=== PATIENT | male | born 1995 | race Caucasian/White ===

== ENCOUNTER 2020-08-23 08:45 | Day surgery (SDC) | payer OTHER ==
[~2020-08-23] VITALS: Ht 177.8 cm; Wt 84.8 kg
[~2020-08-23 08:45] MED LIST: LIDOCAINE 2% 100MG/5ML SDV (FOR ANES.) As Ordered ONE; NS 1,000 ML IV ONE; propofoL 200 MG/20 ML VIAL As Ordered ONE
[2020-08-23] MEDS ORDERED: propofoL 200 MG/20 ML VIAL As Ordered ONE (09:54)
--- NOTE | 2020-08-23 10:16 | ROOR ---
Patient Name: Sarah Wright Procedure Date: 08/23/2020 9:25 AM Date of : 1995 Age: 25 Room: [facility] Gender: Male Note Status: Finalized Procedure: Colonoscopy Indications: Lower abdominal pain, Hematochezia Providers: Tapan Dye MD Referring MD: MIMI LE MD Requesting Provider: Medicines: Monitored Anesthesia Care Complications: No immediate complications. Procedure: Pre-Anesthesia Assessment: - Prior to the procedure, a History and Physical was performed, and patient medications and allergies were reviewed. The patient is competent. The risks and benefits of the procedure and the sedation options and risks were discussed with the patient. All questions were answered and informed consent was obtained. Patient identification and proposed procedure were verified by the physician, the nurse and the anesthesiologist in the procedure room. Mental Status Examination: alert and oriented. Airway Examination: normal oropharyngeal airway and neck mobility. Respiratory Examination: clear to auscultation. CV Examination: normal. Prophylactic Antibiotics: The patient does not require prophylactic antibiotics. Prior Anticoagulants: The patient has taken no previous anticoagulant or antiplatelet agents. ASA Grade Assessment: II - A patient with mild systemic disease. After reviewing the risks and benefits, the patient was deemed in satisfactory condition to undergo the procedure. The anesthesia plan was to use monitored anesthesia care (MAC). Immediately prior to administration of medications, the patient was re-assessed for adequacy to receive sedatives. The heart rate, respiratory rate, oxygen saturations, blood pressure, adequacy of pulmonary ventilation, and response to care were monitored throughout the procedure. The physical status of the patient was re-assessed after the procedure. The Colonoscope was introduced through the anus and advanced to the terminal ileum, with identification of the appendiceal orifice and IC valve. The colonoscopy was performed without difficulty. The patient tolerated the procedure well. The quality of the bowel preparation was good. The terminal ileum, ileocecal valve, appendiceal orifice, and rectum were photographed. Scope insertion time was 2 minutes. Scope withdrawal time was 8 minutes. The total duration of the procedure was 11 minutes. Findings: The perianal and digital rectal examinations were normal. The terminal ileum appeared normal. Five sessile polyps were found in the recto-sigmoid colon. The polyps were 2 to 4 mm in size. These polyps were removed with a jumbo cold forceps. Resection and retrieval were complete. Verification of patient identification for the specimen was done by the physician and nurse using the patient's name, date and medical record number. Estimated blood loss was minimal. Non-bleeding external and internal hemorrhoids were found during retroflexion. The hemorrhoids were medium-sized. Impression: - The examined portion of the ileum was normal. - Five 2 to 4 mm polyps at the recto-sigmoid colon, removed with a jumbo cold forceps. Resected and retrieved. - Non-bleeding external and internal hemorrhoids. Recommendation: - Patient has a contact number available for emergencies. The signs and symptoms of potential delayed complications were discussed with the patient. Return to normal activities tomorrow. Written discharge instructions were provided to the patient. - High fiber diet. - Continue present medications. - Preparation H ointment: Apply externally daily for 5 days. - Use fiber, for example Citrucel, Fibercon, Konsyl or Metamucil. - Await pathology results. - Repeat colonoscopy at age 51 for screening purposes and for surveillance based on pathology results. - Telephone GI clinic for pathology results in 2 weeks. - Return to GI clinic if persistent symptoms or new symptoms. Procedure Code(s): --- Professional --- 47061, Colonoscopy, flexible; with biopsy, single or multiple Diagnosis Code(s): --- Professional --- K64.8, Other hemorrhoids K63.5, Polyp of colon R10.30, Lower abdominal pain, unspecified K92.1, Melena (includes Hematochezia) CPT copyright 2019 [employer]. All rights reserved. The codes documented in this report are preliminary and upon cross roller review may be revised to meet current compliance requirements. Tapan Dye MD Tapan Dye MD 08/23/2020 10:15:57 AM Electronically signed by Tapan Dye MD Number of Addenda: 0 Note Initiated On: 08/23/2020 9:25 AM Estimated Blood Loss: Estimated blood loss was minimal.
[2020-08-23 10:35] VITALS: BP 120/60
== END 2020-08-23 10:53 | disposition home or self-care (01) ==
LOC: M OPP 08:45
PROVIDERS: ATTEND Internal Medicine Gastroenterology
DX: K62.1 Rectal polyp (principal); K64.8 Other hemorrhoids; R10.30 Lower abdominal pain, unspecified; K92.1 Melena; F17.290 Nicotine dependence, other tobacco product, uncomplicated

== ENCOUNTER → 2021-02-03 | Outpatient (REF) | LOC: M LABSMTC 12:55 | PROVIDERS: ATTEND Pediatrics | DX: Z11.52 Encounter for screening for COVID-19 (principal) ==

== ENCOUNTER 2021-07-04 21:58 | Emergency (ER) | payer OTHER ==
[~2021-07-04] VITALS: Ht 177.8 cm; Wt 88.2 kg
[2021-07-04 21:59] VITALS: BP 134/82
== END 2021-07-04 23:30 | disposition home or self-care (01) ==
LOC: M ED 21:58
DX: S52.125A Nondisplaced fracture of head of left radius, initial encounter for closed fracture (principal); V00.181A Fall from other rolling-type pedestrian conveyance, initial encounter; Y92.009 Unspecified place in unspecified non-institutional (private) residence as the place of occurrence of the external cause; Y93.9 Activity, unspecified; Y99.9 Unspecified external cause status; F17.200 Nicotine dependence, unspecified, uncomplicated

== ENCOUNTER 2022-02-24 17:11 | Emergency (ER) | payer OTHER ==
[~2022-02-24] VITALS: Ht 177.8 cm; Wt 93.5 kg
[2022-02-24 18:39] LABS: BASO % 0.5 % (0.0-1.0); EOS # 0.1 10^3/uL (0.0-0.5); EOS % 0.9 % (0.0-3.0); HEMATOCRIT 46.3 % (42.0-52.0); HEMOGLOBIN 16.4 g/dl (13.5-17.5); LYMPH # 1.9 10^3/uL (1.5-5.0); LYMPH % 29.9 % (24.0-44.0); MEAN CORPUSCULAR HGB CONC 35.4 g/dl (32.0-36.5); MEAN CORPUSCULAR VOLUME 84.8 fl (80.0-96.0); MONO % 15.8 % (2.0-8.0); NEUTROPHILS # 3.4 10^3/uL (1.5-8.5); NEUTROPHILS % 52.6 % (36.0-66.0); PLATELET COUNT, AUTOMATED 186 10^3/uL (150-450); RED BLOOD COUNT 5.46 10^6/uL (4.30-6.10); WHITE BLOOD COUNT 6.5 10^3/uL (4.0-10.0)
[2022-02-24 18:58] LABS: LIPASE 26 U/L (12-53)
[2022-02-24 18:59] LABS: BILIRUBIN,DIRECT 0.3 MG/DL (<0.4); INR 0.97; PROTHROMBIN TIME 13.1 SECONDS (12.5-14.5)
[2022-02-24 19:00] LABS: ALKALINE PHOSPHATASE 93 U/L (46-116); ALT/SGPT 52 U/L (7.0-40); AST/SGOT 28 U/L (<34); BILIRUBIN,TOTAL 0.8 MG/DL (0.3-1.2); BLOOD UREA NITROGEN 16 MG/DL (9-23); CALCIUM LEVEL 8.9 MG/DL (8.5-10.1); CARBON DIOXIDE LEVEL 32 MMOL/L (20-31); CHLORIDE LEVEL 101 MMOL/L (98-107); CREATININE FOR GFR 1.08 MG/DL (0.70-1.30); GLOMERULAR FILTRATION RATE > 60.0 (>60); GLUCOSE, FASTING 101 MG/DL (60-100); POTASSIUM SERUM 3.8 MMOL/L (3.5-5.1); SODIUM LEVEL 139 MMOL/L (136-145); TOTAL PROTEIN 7.2 G/DL (5.7-8.2)
[2022-02-24] MEDS ORDERED: ISOVUE-370 76% 100ML VIAL As Ordered ONE (19:12)
[2022-02-24 20:33] VITALS: BP 127/65
== END 2022-02-24 20:34 | disposition home or self-care (01) ==
LOC: M ED 17:11
DX: I88.0 Nonspecific mesenteric lymphadenitis (principal); F17.290 Nicotine dependence, other tobacco product, uncomplicated; Z98.890 Other specified postprocedural states